=== PATIENT | male | born 1945 | race Caucasian/White ===

== ENCOUNTER 2023-04-07 14:20 | Inpatient (IN) | payer OTHER, MEDICARE ==
--- NOTE | 2023-04-07 15:06 | ED ---
General Adult HPI - General Chief complaint: Extremity Injury, Lower Stated complaint: femur fracture Time Seen by Provider: 04/07/23 14:27 Source: EMS Mode of arrival: EMS Limitations: altered mental status, physical limitation - History of Present Illness Initial comments: Dictation was produced using [employer] book dictation software. please excuse any grammatical, word or spelling errors. Chief Complaint: 77-year-old male who is nonverbal presents with left hip fracture seen on x-ray History of Present Illness:. Aimee is a 77-year-old bedbound male he is a [facility] a [facility]. He is nonverbal according to EMS. He has history of dementia. Apparently he had an x-ray done at [facility] was found be fractured. This [facility] was connected to [facility]. He was diverted from their ER brought to our emergency department. It's unclear patient suffered any fall. EMS gave patient 6 mode grams of morphine. The ROS documented in this emergency department record has been reviewed and confirmed by me. Those systems with pertinent positive or negative responses have been documented in the HPI. All other systems are other negative and/or noncontributory. - Related Data Home Medications Medication Instructions Recorded Confirmed Acetaminophen [Tylenol] 650 mg PO Q6H PRN 04/07/23 04/07/23 LORazepam [Ativan] 1 mg PO BID 04/07/23 04/07/23 Magnesium Hydroxide [Milk of 2,400 mg PO Q48H PRN 04/07/23 04/07/23 Magnesia] Melatonin 3 mg PO HS 04/07/23 04/07/23 Multivitamins, Thera [Multivitamin 1 tab PO DAILY 04/07/23 04/07/23 (formulary)] Na Phos,M-B/Na Phos,Di-Ba [Fleet 133 ml RECTAL Q48H PRN 04/07/23 04/07/23 Adult] Sennosides [Senokot] 8.6 mg PO DAILY 04/07/23 04/07/23 Sertraline [Zoloft] 150 mg PO DAILY 04/07/23 04/07/23 Topiramate [Topamax] 100 mg PO DAILY 04/07/23 04/07/23 bisacodyL [Correctol] 5 mg PO HS PRN 04/07/23 04/07/23 bisacodyL [Dulcolax] 10 mg RECTAL Q72H PRN 04/07/23 04/07/23 carvediloL [Coreg] 6.25 mg PO BID 04/07/23 04/07/23 risperiDONE [RisperDAL] 0.5 mg PO BID 04/07/23 04/07/23 Allergies Allergy/AdvReac Type Severity Reaction Status Date / Time No Known Allergies Allergy Verified 04/07/23 16:41 Review of Systems ROS Statement: Those systems with pertinent positive or pertinent negative responses have been documented in the HPI. ROS Other: All systems not noted in ROS Statement are negative. Past Medical History Past Medical History: Dementia, Hypertension Additional Past Medical History / Comment(s): COVID, Psychotic disorder with delusions, Insomnia, glaucoma, History of Any Multi-Drug Resistant Organisms: Unobtainable Past Surgical History: Unable to Obtain Past Psychological History: Anxiety, Depression, PTSD Smoking Status: Unknown if ever smoked Past Alcohol Use History: Unable to Obtain Past Drug Use History: Unable to Obtain General Exam - General Exam Comments Initial Comments: PHYSICAL EXAM: General Impression: Nonverbal, sleeping, not acute distress, doesn't follow commands, contracted lower extremities HEENT: Normocephalic atraumatic, extra-ocular movements intact, pupils equal and reactive to light bilaterally, mucous membranes moist. Cardiovascular: Heart regular rate and rhythm Chest:, no retractions, no tachypnea Abdomen: abdomen soft, non-tender, non-distended, no organomegaly Musculoskeletal: Pulses present and equal in all extremities, no peripheral edema Motor: no focal deficits noted Neurological: no focal motor or sensory deficits noted Skin: Intact with no visualized rashes Limitations: altered mental status, physical limitation Course Vital Signs 04/07/23 14:21 Temperature 97.6 F Pulse Rate 50 L Respiratory 18 Rate Blood Pressure 105/68 O2 Sat by Pulse 97 Oximetry Medical Decision Making - Medical Decision Making Was pt. sent in by a medical professional or institution (, PA, PAYROLL ACCOUNTANT, urgent care, hospital, or fci...) When possible be specific @ -No Did you speak to anyone other than the patient for history (EMS, parent, family, police, friend...)? What history was obtained from this source @ -No Did you review nursing and triage notes (agree or disagree)? Why? @ -I reviewed and agree with nursing and triage notes Were old charts reviewed (outside hosp., previous admission, EMS record, old EKG, old radiological studies, urgent care reports/EKG's, fci records)? Report findings @ -No old charts were reviewed Differential Diagnosis (chest pain, altered mental status, abdominal pain women, abdominal pain men, vaginal bleeding, musculoskeletal, weakness, fever, dyspnea, syncope, headache, dizziness, GI bleed, back pain, seizure, CVA, palpatations, mental health)? @ -not applicable EKG interpreted by me (3pts min.). @ -As above X-rays interpreted by me (1pt min.). @ -None done CT interpreted by me (1pt min.). @ -Computed tomography scan of the pelvis and hip shows left femoral neck fracture with concern for iliacs hemorrhage and intraperitoneal hemorrhage. CT head and C-spines negative. CT scan of the chest and abdomen pelvis shows no a cute processes. U/S interpreted by me (1pt. min.). @ -None done What testing was considered but not performed or refused? (CT, X-rays, U/S, labs )? Why? @ -None What meds were considered but not given or refused? Why? @ -None Did you discuss the management of the patient with other professionals (professionals i.e. , PA, PAYROLL ACCOUNTANT, lab, RT, psych nurse, social security assessor, drencher, teacher, protection officer, porter sample case)? Give summary @ -Discussed with orthopedic surgery who requests patient be admitted to medicine. Case also discussed with general surgery who will happily consult on the patient Was smoking cessation discussed for >3mins.? @ -No Was critical care preformed (if so, how long)? @ -No Were there social determinants of health that impacted care today? How? (Homelessness, low income, unemployed, alcoholism, drug addiction, transportation, low edu. Level, literacy, decrease access to med. care, fdc, rehab)? @ -No Was there de-escalation of care discussed even if they declined (Discuss DNR or withdrawal of care, Hospice)? DNR status @ -No What co-morbidities impacted this encounter? (DM, HTN, Smoking, COPD, CAD, Cancer, CVA, ARF, Chemo, Hep., AIDS, mental health diagnosis, sleep apnea, morbid obesity)? @ -None Was patient admitted / discharged? Hospital course, mention meds given and route, prescriptions, significant lab abnormalities, going to OR and other pertinent info. @ -77-year-old male presents emergency Department with hip x-ray fracture [facility] at the [facility]. Vital signs are stable. Patient was given analgesics and route to the emergency department. Patient is allegedly a and O 0 at baseline. Computed tomography scan of the pelvis and hip shows no fracture. There is suspicion of intraperitoneal hemorrhage and retroperitoneal iliac is hemorrhage. Case is discussed with the and Gen. surgery. Is unclear when patient had fallen. He is bedridden. He is not a candidate for surgery. Surgical specialties requests patient be admitted to medicine due to complexity of medica l history. Undiagnosed new problem with uncertain prognosis? @ -No Drug Therapy requiring intensive monitoring for toxicity (Heparin, Nitro, Ins ulin, Cardizem)? @ -No Were any procedures done? @ -No Diagnosis/symptom? Acute, or Chronic, or Acute on Chronic? Uncomplicated (without systemic symptoms) or Complicated (systemic symptoms)? @ -Hip fracture Side effects of treatment? @ -No Exacerbation, Progression, or Severe Exacerbation? @ -No Poses a threat to life or bodily function? How? (Chest pain, USA, HI, pneumonia, PE, COPD, DKA, ARF, appy, cholecystitis, CVA, Diverticulitis, Homicidal, Suicidal, threat to staff... and all critical care pts) @ -yes - Lab Data Result diagrams: 04/07/23 15:36 04/07/23 15:36 Lab Results 04/07/23 04/07/23 04/07/23 Range/Units 15:36 15:36 15:36 WBC 9.5 (3.8-10.6) k/uL RBC 4.44 (4.30-5.90) m/uL Hgb 13.8 (13.0-17.5) gm/dL Hct 41.8 (39.0-53.0) % MCV 94.3 (80.0-100.0) fL MCH 31.2 (25.0-35.0) pg MCHC 33.0 (31.0-37.0) g/dL RDW 12.8 (11.5-15.5) % Plt Count 171 (150-450) k/uL MPV 7.9 Neutrophils % 74 % Lymphocytes % 15 % Monocytes % 7 % Eosinophils % 2 % Basophils % 0 % Neutrophils # 7.0 (1.3-7.7) k/uL Lymphocytes # 1.4 (1.0-4.8) k/uL Monocytes # 0.7 (0-1.0) k/uL Eosinophils # 0.2 (0-0.7) k/uL Basophils # 0.0 (0-0.2) k/uL PT 10.2 (10.0-12.5) sec INR 0.9 (<1.2) APTT 22.7 (22.0-30.0) sec Sodium 141 (137-145) mmol/L Potassium 3.9 (3.5-5.1) mmol/L Chloride 108 H (98-107) mmol/L Carbon Dioxide 25 (22-30) mmol/L Anion Gap 8 mmol/L BUN 19 (9-20) mg/dL Creatinine 0.74 (0.66-1.25) mg/dL Est GFR (CKD-EPI)AfAm >90 (>60 ml/min/1.73 sqM) Est GFR (CKD-EPI)NonAf 90 (>60 ml/min/1.73 sqM) Glucose 97 (74-99) mg/dL Calcium 9.2 (8.4-10.2) mg/dL Disposition Clinical Impression: Hip fracture Disposition: ADMITTED IP TO THIS HOSP Condition: Fair Referrals: Edmar Dillard MD [Primary Care Provider] - 1-2 days Decision Time: 18:36
[2023-04-07 15:52] LABS: Basophils % (A) 0 %; Eosinophils # (A) 0.2 k/uL (0-0.7); Eosinophils % (A) 2 %; HCT 41.8 % (39.0-53.0); HGB 13.8 gm/dL (13.0-17.5); Lymphocytes # (A) 1.4 k/uL (1.0-4.8); Lymphocytes % (A) 15 %; MCH 31.2 pg (25.0-35.0); MCV 94.3 fL (80.0-100.0); Mean Platelet Volume 7.9; Monocytes # (A) 0.7 k/uL (0-1.0); Monocytes % (A) 7 %; Neutrophils % (A) 74 %; Platelet Count 171 k/uL (150-450); RBC 4.44 m/uL (4.30-5.90); RDW 12.8 % (11.5-15.5); WBC 9.5 k/uL (3.8-10.6)
[2023-04-07 16:02] LABS: INR 0.9 (<1.2); Partial Thromboplastin Time 22.7 sec (22.0-30.0); Prothrombin Time 10.2 sec (10.0-12.5)
[2023-04-07 16:05] LABS: African American GFR (CKD) >90 (>60 ml/min/1.73 sqM); Anion Gap 8 mmol/L; Blood Urea Nitrogen 19 mg/dL (9-20); Calcium 9.2 mg/dL (8.4-10.2); Carbon Dioxide 25 mmol/L (22-30); Chloride 108 mmol/L (98-107); Glucose 97 mg/dL (74-99); Non-African American GFR(CKD) 90 (>60 ml/min/1.73 sqM); Potassium 3.9 mmol/L (3.5-5.1); Sodium 141 mmol/L (137-145)
--- NOTE | 2023-04-07 16:14 | CT ---
EXAMINATION TYPE: CT pelvis wo con, CT hip LT wo con CT DLP: 317.9 (accession [id number]), 436.9 (accession [id number]) mGycm, Automated exposure control for dose reduction was used. DATE OF EXAM: 04/07/2023 4:01 PM COMPARISON: None CLINICAL INDICATION:Male, 77 years old with history of fracture; left hip fx TECHNIQUE: Standard CT of the pelvis and left hip without IV or oral contrast. Lack of IV or oral c ontrast limits evaluation of solid and hollow organ viscera. Coronal and sagittal reformats were perf ormed. 3-D reformat the left hip were obtained. FINDINGS: BLADDER: Couple of punctate calcifications within the urinary bladder REPRODUCTIVE: Prostate is enlarged in size measuring 5.2 cm in transverse dimension. This indents upo n the ureter bladder base. Prostate calcifications noted. BOWEL: No focal wall thickening. No evidence of bowel obstruction. PERITONEUM: No evidence of pneumoperitoneum. Small amount of intraperitoneal hemorrhage on the left i dentified with left iliac is intramuscular hematoma. VASCULATURE: Atherosclerotic calcification of the vasculature MUSCULOSKELETAL: Acute comminuted minimally displaced transverse left femoral subcapital fracture. Th ere is surrounding edema. No sizable joint effusion. LYMPH NODES: No gross evidence for lymphadenopathy. SOFT TISSUE/ABDOMINAL WALL: There are couple of metallic densities identified within the posterior le ft gluteal soft tissues abutting the iliac bone with largest measuring up to 8 mm. IMPRESSION: 1. Acute left femoral subcapital comminuted minimally displaced fracture. 2. Small intraperitoneal hemorrhage and left iliacus intramuscular hematoma. 3. Prostatomegaly. 4. Couple of urinary bladder calculi. 5. Couple of metallic foreign bodies identified within the left gluteal soft tissues abutting the michael ac bone.
--- NOTE | 2023-04-07 18:16 | CT ---
EXAMINATION TYPE: CT brain cspine wo con CT DLP: 1393.7 mGycm, Automated exposure control for dose reduction was used. DATE OF EXAM: 04/07/2023 5:53 PM COMPARISON: None. CLINICAL INDICATION:Male, 77 years old with history of fall; ams TECHNIQUE: Brain: Multiple axial CT images of the brain were obtained without IV contrast. Cspine: Axial CT images from the skull base to the inferior aspect of T2 we obtained without intraven ous contrast. Coronal and sagittal reformatted images were also reviewed. FINDINGS: Brain: Extra-axial spaces: No abnormal extra-axial fluid collections. Ventricular system: Dilatation in proportion to cerebral atrophy. Cerebral parenchyma: Cerebral atrophy. No acute intraparenchymal hemorrhage or mass effect. The jones -white junction is well differentiated. Scattered hypoattenuating areas are seen within the white mat ter. Cerebellum: Unremarkable. Mass effect: No evidence of midline shift. Intracranial vasculature: Atherosclerotic calcifications of the intracranial vessels. Soft tissues: Normal. Calvarium/osseous structures: No depressed skull fracture. Paranasal sinuses and mastoid air cells: Mild scattered mucosal thickening and or secretions. Visualized orbits: Bilateral aphakia Cervical spine: Fracture: None. Osseous structures: Multilevel degenerative disc disease changes with endplate spurring and disc oste ophyte complex's. Vertebral alignment: Within normal limits. Spinal canal/Neural Foramina: No evidence of significant spinal canal narrowing. No evidence for sign ificant neural foraminal stenosis. Neck soft tissues: Prevertebral soft tissues are within normal limits. IMPRESSION: 1. No acute intracranial process. 2. Nonspecific white matter changes, likely secondary to chronic small vessel ischemic disease. 3. No evidence of cervical spine fracture. 4. Moderate multilevel degenerative disc disease.
--- NOTE | 2023-04-07 18:21 | CT ---
EXAMINATION TYPE: CT ChestAbdPelvis w con CT DLP: 907.5 mGycm, Automated exposure control for dose reduction was used. DATE OF EXAM: 04/07/2023 5:52 PM COMPARISON: CT same day. CLINICAL INDICATION:Male, 77 years old with history of fall; PHH, ams, unable to obtain hx Technique: Multiple axial images of the chest, abdomen, and pelvis were obtained. Two-dimensional cor onal and sagittal reconstructions were obtained. Contrast used:100 mL of Isovue 370 with IV Contrast, Oral contrast used: without Oral Contrast Findings: CHEST: LUNGS/ PLEURA: Posterior dependent atelectasis. No focal consolidation, pneumothorax or pleural effus ion. AIRWAY: Patent and unremarkable. HEART: Size within normal limits. MEDIASTINUM: No gross evidence of adenopathy. Partially calcified lymph node in the subcarinal and ri ght hilar region. VASCULATURE: No aortic aneurysm. MUSCULOSKELETAL: No acute osseous abnormalities. Left shoulder arthroplasty partially visualized. Lane dware is visualized appears intact. SOFT TISSUES/LYMPH NODES: Unremarkable. LOWER NECK: No significant findings. ABDOMEN: ABDOMEN LIVER: Unremarkable GALLBLADDER AND BILE DUCTS: Unremarkable. PANCREAS: Unremarkable. SPLEEN: Unremarkable. ADRENAL GLANDS: Unremarkable. KIDNEYS AND URETERS: No evidence of hydronephrosis or renal calculus. The ureters are unremarkable. PELVIS BLADDER: Couple of punctate calcifications within the urinary bladder REPRODUCTIVE: Prostate is enlarged in size measuring 5.1 cm in transverse dimension. There is coarse calcifications of the prostate gland. ABDOMEN & PELVIS STOMACH AND BOWEL: No evidence of bowel obstruction. PERITONEUM: No evidence of pneumoperitoneum or free fluid. VASCULATURE: No evidence of aortic aneurysm. MUSCULOSKELETAL: Acute comminuted minimally displaced transverse left femoral neck subcapital fractur e. There is surrounding edema. There is grade 1/grade 2 anterolisthesis of L5 on S1 with bilateral pa rs interarticularis defects. LYMPH NODES: No gross evidence for lymphadenopathy. SOFT TISSUE/ABDOMINAL WALL: Unremarkable IMPRESSION: 1. Acute comminuted left femoral neck subcapital fracture. 2. No evidence for acute thoracic or abdominal process. 3. Sequela of chronic granulomatous disease. 4. Prostatomegaly correlate with serum PSA 5. Grade 2 anterolisthesis of L5 on S1.
[2023-04-07] MEDS ORDERED: NALOXONE 0.4 MG/ML 1 ML VIAL IV PRN (18:32)
[2023-04-07 18:41] LABS: ALT 54 U/L (4-49); AST 34 U/L (17-59); African American GFR (CKD) >90 (>60 ml/min/1.73 sqM); Albumin 3.6 g/dL (3.5-5.0); Alkaline Phosphatase 111 U/L (38-126); Anion Gap 8 mmol/L; Blood Urea Nitrogen 18 mg/dL (9-20); Calcium 9.2 mg/dL (8.4-10.2); Carbon Dioxide 25 mmol/L (22-30); Chloride 107 mmol/L (98-107); Glucose 99 mg/dL (74-99); Non-African American GFR(CKD) 89 (>60 ml/min/1.73 sqM); Potassium 4.4 mmol/L (3.5-5.1); Sodium 140 mmol/L (137-145); Total Bilirubin 0.7 mg/dL (0.2-1.3); Total Protein 6.3 g/dL (6.3-8.2)
--- NOTE | 2023-04-07 18:46 | P.CNOR ---
History of Present Illness - [facility] Consult date: 04/07/23 History of present illness: The patient is a 77 y/o male who presented to the ER at [facility] via transfer from [facility] for a left hip fracture. The patient is currently sedated with morphine and unable to communicate at this time. His and her sister are at the bedside upon my exam and they provided a history. He does have a history of dementia and bypass surgery in the past. He is currently residing in the memory care area of an [facility] in [place]. The patient did fall on 04/02/2023 and complained of left hip pain. X-rays were taken in the long term that revealed a left hip fracture. He was sent to the ER at [facility] then transferred here for further evaluation and care by orthopedic surgery. CT of the left hip and pelvis were completed here and revealed a left subcapital femur fracture and a small intraperitoneal hemorrhage and left iliac intramuscular hematoma. The patient's stated he had surgery on the left hip as a child and there was a pin placed in the hip. Orthopedics was consulted for further evaluation and care for the hip fracture. Review of Systems ROS unobtainable: due to mental status Past Medical History Past Medical History: Dementia, Hypertension Additional Past Medical History / Comment(s): COVID, Psychotic disorder with delusions, Insomnia, glaucoma, History of Any Multi-Drug Resistant Organisms: Unobtainable Past Surgical History: Unable to Obtain Past Psychological History: Anxiety, Depression, PTSD Smoking Status: Unknown if ever smoked Past Alcohol Use History: Unable to Obtain Past Drug Use History: Unable to Obtain Medications and Allergies Home Medications Medication Instructions Recorded Confirmed Type Acetaminophen [Tylenol] 650 mg PO Q6H PRN 04/07/23 04/07/23 History LORazepam [Ativan] 1 mg PO BID 04/07/23 04/07/23 History Magnesium Hydroxide [Milk of 2,400 mg PO Q48H PRN 04/07/23 04/07/23 History Magnesia] Melatonin 3 mg PO HS 04/07/23 04/07/23 History Multivitamins, Thera [Multivitamin 1 tab PO DAILY 04/07/23 04/07/23 History (formulary)] Na Phos,M-B/Na Phos,Di-Ba [Fleet 133 ml RECTAL Q48H PRN 04/07/23 04/07/23 History Adult] Sennosides [Senokot] 8.6 mg PO DAILY 04/07/23 04/07/23 History Sertraline [Zoloft] 150 mg PO DAILY 04/07/23 04/07/23 History Topiramate [Topamax] 100 mg PO DAILY 04/07/23 04/07/23 History bisacodyL [Correctol] 5 mg PO HS PRN 04/07/23 04/07/23 History bisacodyL [Dulcolax] 10 mg RECTAL Q72H PRN 04/07/23 04/07/23 History carvediloL [Coreg] 6.25 mg PO BID 04/07/23 04/07/23 History risperiDONE [RisperDAL] 0.5 mg PO BID 04/07/23 04/07/23 History Allergies Allergy/AdvReac Type Severity Reaction Status Date / Time No Known Allergies Allergy Verified 04/07/23 16:41 Physical Examination The patient is an 77 year-old male in no acute distress. He is sedated and unable to respond at this time. The patient's head is normocephalic, atraumatic. No pain upon palpation to the cervical spine, no step-offs noted. Exam of the bilateral upper extremities reveal no obvious deformities or wounds. Exam of the right lower extremity reveals no deformity or wounds. No pain upon range of motion of the right leg. Exam of the left lower extremity reveals some grimacing on ROM of the left hip. There no visible pain to palpation to the lateral hip. There is pain to external and internal rotation of the left hip. Calf is soft and nontender. Circulatory status is intact. Results CT of the left hip and pelvis reveals a left subcapital hip fracture and small intraperitoneal hemorrhage. - Labs Labs: Abnormal Lab Results - Last 24 Hours (Table) 04/07/23 04/07/23 Range/Units 15:36 18:17 Chloride 108 H (98-107) mmol/L ALT 54 H (4-49) U/L H & H 04/07/23 Range/Units 15:36 Hgb 13.8 (13.0-17.5) gm/dL Hct 41.8 (39.0-53.0) % Coagulation 04/07/23 Range/Units 15:36 INR 0.9 (<1.2) Result Diagrams: 04/07/23 15:36 04/07/23 18:17 Assessment and Plan (1) Subcapital fracture of left hip Current Visit: Yes Status: Acute Code(s): S72.012A - UNSP INTRACAPSULAR FRACTURE OF LEFT FEMUR, INIT FOR CLOS FX SNOMED Code(s): 367834809 (2) Fall Current Visit: Yes Status: Acute Code(s): W19.XXXA - UNSPECIFIED FALL, INITIAL ENCOUNTER SNOMED Code(s): 5166258 (3) Dementia Current Visit: Yes Status: Acute Code(s): F03.90 - UNSP DEMENTIA, UNSP SEVERITY, WITHOUT BEH/PSYCH/MOOD/ANX SNOMED Code(s): 13300761 Plan: The clinical and CT findings were discussed with the patient's family at the bedside. The case was discussed at length with Dr. Ozuna. Since the patient is ambulatory at his ECF, we are recommending a left hip hemiarthroplasty. The patient's is requesting the procedure to be done with the anterior approach and the case will be discussed with Dr. Jose Hansen. He will be NPO at midnight. Surgical risks were discussed at length with the patient's . She agrees that we will proceed with surgery tomorrow afternoon. He will remain on bed rest and pain medication as needed. General surgery consult has been placed for the intraperitoneal hemorrhage. Internal medicine has accepted the patient for inpatient admission. We will continue to follow patient closely and will make recommendations as needed.
[2023-04-07] MEDS: SODIUM CHLORIDE 0.9% 1,000 ML IV SCH (20:12)
[2023-04-07] MEDS ORDERED: MAGNESIUM HYDROXIDE 2,400 MG/30 ML CUP PO PRN (20:14)
[2023-04-07] MEDS ORDERED: NA PHOS,M-B/NA PHOS,DI-BA 133 ML ENEMA RECTAL PRN (20:14)
[2023-04-07] MEDS ORDERED: bisacodyL 10 MG SUPP RECTAL PRN (20:14)
[2023-04-07] MEDS ORDERED: bisacodyL 5 MG TABLET.DR PO PRN (20:14)
[2023-04-07] MEDS: carvediloL 6.25 MG TAB PO SCH (22:57)
[2023-04-07] MEDS: MELATONIN 3 MG TABLET PO SCH (22:57)
[2023-04-07] MEDS: risperiDONE 0.5 MG TAB PO SCH (22:57)
[2023-04-08] MEDS ORDERED: MORPHINE SULFATE 2 MG/ML SYRINGE IVP STA (02:29)
[2023-04-08] MEDS ORDERED: ZINC OXIDE PASTE (Z-GUARD) 1 APPLIC APPLIC TOPICAL PRN (03:04)
[2023-04-08] MEDS: carvediloL 6.25 MG TAB PO SCH ×2 (06:26→17:09)
--- NOTE | 2023-04-08 08:00 | XR ---
EXAMINATION TYPE: XR Hip Limited LT DATE OF EXAM: 04/08/2023 COMPARISON: None HISTORY: Fracture, pain TECHNIQUE: Single AP view left hip FINDINGS: Femoral head articulates with the acetabulum. Joint space is narrowed. There is a subtle lucency within the neck of the femur compatible with fracture IMPRESSION: 1. Subtle left femoral neck fracture
[2023-04-08] MEDS: SODIUM CHLORIDE 0.9% 1,000 ML IV SCH ×2 (08:58→17:08)
[2023-04-08] MEDS: SERTRALINE 100 MG TAB PO SCH (08:59)
[2023-04-08] MEDS: TOPIRAMATE 100 MG TAB PO SCH (08:59)
[2023-04-08] MEDS: risperiDONE 0.5 MG TAB PO SCH ×2 (09:00→20:21)
[2023-04-08 09:45] LABS: Basophils % (A) 0 %; Eosinophils # (A) 0.2 k/uL (0-0.7); Eosinophils % (A) 3 %; HCT 40.7 % (39.0-53.0); HGB 13.2 gm/dL (13.0-17.5); Lymphocytes # (A) 1.1 k/uL (1.0-4.8); Lymphocytes % (A) 15 %; MCHC 32.5 g/dL (31.0-37.0); MCV 95.4 fL (80.0-100.0); Mean Platelet Volume 8.4; Monocytes # (A) 0.5 k/uL (0-1.0); Monocytes % (A) 7 %; Neutrophils # (A) 5.4 k/uL (1.3-7.7); Neutrophils % (A) 72 %; Platelet Count 163 k/uL (150-450); RBC 4.27 m/uL (4.30-5.90); RDW 13.3 % (11.5-15.5); WBC 7.5 k/uL (3.8-10.6)
[2023-04-08 11:52] VITALS: BMI 22.6
--- NOTE | 2023-04-08 12:43 | P.HPIM ---
History of Present Illness H&P Date: 04/08/23 History of present illness; patient 77-year-old gentleman with past medical hist ory significant for dementia who is a resident of a [facility] facility and is alert and oriented to time 0 at baseline brought to the ER as a transfer from [facility] for hip fracture. History is limited as patient is not best of historians, EMR records were reviewed, patient normally ambulates. Patient's and daughter did mention that the patient had a fall on 04/02 and was complaining of left hip pain. Hip x-ray done at the [facility] facility found the hip fracture and the reason for initiating the transfer. Initial lab work done in the ER showed WBC 9.5, hemoglobin 13.8, platelet count 171, sodium 141, potassium 3.9, BUN 19, creatinine 0.74, EKG done in the ER showed normal sinus rhythm, no ST segment elevation, no T- wave inversion, heart rate of 66, QRS 100 CT hip and pelvis done showed acute left femoral subcapital comminuted minimally displaced fracture, small intraperitoneal hemorrhage and left iliacus intramuscular hematoma Chest x-ray done in the ER CT head and cervical spine done showed no acute intracranial process, nonspecific white matter changes, no evidence of cervical spine fracture CT chest abdominal and pelvis done showed no evidence of acute thoracic or abdominal process Patient admitted to medicine service REVIEW OF SYSTEMS: Cannot be obtained because of patient's mental status. PHYSICAL EXAMINATION: GENERAL: The patient is alert and oriented x0, not in any acute distress. Chronically ill-looking HEENT: Pupils are round and equally reacting to light. EOMI. No scleral icterus. No conjunctival pallor. Normocephalic, atraumatic. No pharyngeal erythema. No thyromegaly. CARDIOVASCULAR: S1 and S2 present. No murmurs, rubs, or gallops. PULMONARY: Chest is clear to auscultation, no wheezing or crackles. ABDOMEN: Soft, nontender, nondistended, normoactive bowel sounds. No palpable organomegaly. MUSCULOSKELETAL: No joint swelling or deformity. EXTREMITIES: No cyanosis, clubbing, or pedal edema. NEUROLOGICAL: Moving all extremities, history of dementia SKIN: No rashes. Assessment and plan Subcapital fracture of left Hip Fall dementia Monitor vital signs Monitor CBC Monitor CMP Fall Precautions Delirium precautions Continue pain management Continue antiemetics Orthopedic consulted, planning left hip hemiarthroplasty for tomorrow. Patient is medically cleared for surgery with moderate risk of complications pos toperatively Labs and medication were reviewed.. Continue same treatment. Continue with symptomatic treatment. Resume home medication. Monitor labs and vitals. DVT and GI prophylaxis. Further recommendations as per clinical course of the patient Dictation was produced using [employer] dictation software. please excuse any grammatical, word or spelling errors. Past Medical History Past Medical History: Dementia, Hypertension Additional Past Medical History / Comment(s): COVID, Psychotic disorder with delusions, Insomnia, glaucoma, History of Any Multi-Drug Resistant Organisms: Unobtainable Past Surgical History: Joint Replacement Additional Past Surgical History / Comment(s): hip replacement L side, sh Past Anesthesia/Blood Transfusion Reactions: No Reported Reaction Past Psychological History: Anxiety, Depression, PTSD Smoking Status: Never smoker Past Alcohol Use History: Unable to Obtain Past Drug Use History: Unable to Obtain Medications and Allergies Home Medications Medication Instructions Recorded Confirmed Type Acetaminophen [Tylenol] 650 mg PO Q6H PRN 04/07/23 04/07/23 History LORazepam [Ativan] 1 mg PO BID 04/07/23 04/07/23 History Magnesium Hydroxide [Milk of 2,400 mg PO Q48H PRN 04/07/23 04/07/23 History Magnesia] Melatonin 3 mg PO HS 04/07/23 04/07/23 History Multivitamins, Thera [Multivitamin 1 tab PO DAILY 04/07/23 04/07/23 History (formulary)] Na Phos,M-B/Na Phos,Di-Ba [Fleet 133 ml RECTAL Q48H PRN 04/07/23 04/07/23 History Adult] Sennosides [Senokot] 8.6 mg PO DAILY 04/07/23 04/07/23 History Sertraline [Zoloft] 150 mg PO DAILY 04/07/23 04/07/23 History Topiramate [Topamax] 100 mg PO DAILY 04/07/23 04/07/23 History bisacodyL [Correctol] 5 mg PO HS PRN 04/07/23 04/07/23 History bisacodyL [Dulcolax] 10 mg RECTAL Q72H PRN 04/07/23 04/07/23 History carvediloL [Coreg] 6.25 mg PO BID 04/07/23 04/07/23 History risperiDONE [RisperDAL] 0.5 mg PO BID 04/07/23 04/07/23 History Allergies Allergy/AdvReac Type Severity Reaction Status Date / Time No Known Allergies Allergy Verified 04/07/23 16:41 Physical Exam Vitals: Vital Signs Temp Pulse Pulse Resp BP BP Pulse Ox 04/08/23 09:02 97.1 F L 65 16 97/52 95 04/08/23 07:35 97.1 F L 60 17 97/52 95 04/08/23 01:38 96.9 F L 63 16 94/56 98 04/07/23 21:58 97.6 F 65 16 119/69 95 04/07/23 20:38 72 16 111/74 95 04/07/23 14:21 97.6 F 50 L 18 105/68 97 Intake and Output 04/07/23 04/08/23 04/08/23 22:59 06:59 14:59 Other: # Voids 1 # Bowel Movements 1 Weight 63.503 kg Results CBC & Chem 7: 04/08/23 09:19 04/07/23 18:17 Labs: Abnormal Lab Results - Last 24 Hours (Table) 04/07/23 04/07/23 04/08/23 Range/Units 15:36 18:17 09:19 RBC 4.27 L (4.30-5.90) m/uL Chloride 108 H (98-107) mmol/L ALT 54 H (4-49) U/L Thrombosis Risk Factor Assmnt - Choose All That Apply Each Risk Factor Represents 3 Points: Age 75 years or older Each Risk Factor Represents 5 Points: Hip, pelvis, or leg fracture (< 1 month) Thrombosis Risk Factor Assessment Total Risk Factor Score: 8 Thrombosis Risk Factor Assessment Level: High Risk
--- NOTE | 2023-04-08 13:14 | P.GSCN ---
History of Present Illness Consult date: 04/08/23 History of present illness: CHIEF COMPLAINT: Left hip fracture Reason for consult intraperitoneal bleed HISTORY OF PRESENT ILLNESS: This is a 77-year-old male with a history of dementia. Patient is a poor historian. History was obtained from chart. Apparently patient had a fall on 04/02/2023 and complained of left hip pain. Neck x-rays at the group home that he is at revealed a left hip fracture. He was sent to the ER at [place] and then transferred to [facility] for orthopedic evaluation. Computed tomography scan of the left hip and pelvis re ported a left subcapital femur fracture and a small intraperitoneal hemorrhage and left iliac intramuscular hematoma. Patient is scheduled for left hip hemiarthroplasty with orthopedic service today. Surgical service consulted in regards to the intraperitoneal hemorrhage. Patient is not on any blood thinners. Currently not complaining of any abdominal pain. No nausea or vomiting reported. PAST MEDICAL HISTORY: Dementia, hypertension, anxiety, depression, PTSD PAST SURGICAL HISTORY: Orthopedic surgery as a child MEDICATIONS: See below ALLERGIES: See below SOCIAL HISTORY: No illicit drug use. REVIEW OF SYSTEMS: CONSTITUTIONAL: Denies fever or chills. HEENT: Denies blurred vision, vision changes, or eye pain. Denies hemoptysis CARDIOVASCULAR: Denies chest pain or pressure. RESPIRATORY: No shortness of breath. GASTROINTESTINAL: See HPI for pertinent findings HEMATOLOGIC: Denies bleeding disorders. GENITOURINARY: Denies any blood in urine or increased urinary frequency. SKIN: Denies pruitis. Denies rash. PHYSICAL EXAM: VITAL SIGNS: Reviewed GENERAL: Well-developed in no acute distress. ABDOMEN: Soft. Nondistended. Nontender NEUROLOGIC: Awake and alert. Nonverbal. LABORATORY DATA: WBC 7.5 Hgb 13.2 platelets 163 Sodium 140 potassium 4.4 creatinine 0.75 IMAGING: Computed tomography scan chest abdomen pelvis acute comminuted left femoral neck subcapital fracture. No evidence for acute thoracic or abdominal process. Sequelae of chronic cranial hematoma's disease. Prostamegaly. Grade 2 anterolisthesis of L5 on S1. Computed tomography scan of pelvis and hip acute left femoral subcapital comminuted minimally to hip fracture. Small intraperitoneal hemorrhage and left intramuscular hematoma. Couple of metallic foreign bodies identified within the left gluteal soft tissue abutting the iliac bone. Computed tomography scan head and cervical spine no acute intracranial process. No evidence of cervical fracture. ASSESSMENT: 1. Small intraperitoneal hemorrhage noted on pelvic computed tomography scan. Likely secondary to patient's hip fracture 2. Acute left femoral subcapital commuted hip fracture PLAN: -No surgical intervention plan from general surgical service -Continue to monitor -Hemoglobin remaining stable -Orthopedic service following left hip fracture with plans for surgical intervention -Continue supportive care Physician Mica Washer Gluer note has been reviewed by physician. Signing provider agrees with the documented findings, assessment, and plan of care. Past Medical History Past Medical History: Dementia, Hypertension Additional Past Medical History / Comment(s): COVID, Psychotic disorder with delusions, Insomnia, glaucoma, History of Any Multi-Drug Resistant Organisms: Unobtainable Past Surgical History: Joint Replacement Additional Past Surgical History / Comment(s): hip replacement L side, sh Past Anesthesia/Blood Transfusion Reactions: No Reported Reaction Past Psychological History: Anxiety, Depression, PTSD Smoking Status: Never smoker Past Alcohol Use History: Unable to Obtain Past Drug Use History: Unable to Obtain Medications and Allergies Home Medications Medication Instructions Recorded Confirmed Type Acetaminophen [Tylenol] 650 mg PO Q6H PRN 04/07/23 04/07/23 History LORazepam [Ativan] 1 mg PO BID 04/07/23 04/07/23 History Magnesium Hydroxide [Milk of 2,400 mg PO Q48H PRN 04/07/23 04/07/23 History Magnesia] Melatonin 3 mg PO HS 04/07/23 04/07/23 History Multivitamins, Thera [Multivitamin 1 tab PO DAILY 04/07/23 04/07/23 History (formulary)] Na Phos,M-B/Na Phos,Di-Ba [Fleet 133 ml RECTAL Q48H PRN 04/07/23 04/07/23 History Adult] Sennosides [Senokot] 8.6 mg PO DAILY 04/07/23 04/07/23 History Sertraline [Zoloft] 150 mg PO DAILY 04/07/23 04/07/23 History Topiramate [Topamax] 100 mg PO DAILY 04/07/23 04/07/23 History bisacodyL [Correctol] 5 mg PO HS PRN 04/07/23 04/07/23 History bisacodyL [Dulcolax] 10 mg RECTAL Q72H PRN 04/07/23 04/07/23 History carvediloL [Coreg] 6.25 mg PO BID 04/07/23 04/07/23 History risperiDONE [RisperDAL] 0.5 mg PO BID 04/07/23 04/07/23 History Allergies Allergy/AdvReac Type Severity Reaction Status Date / Time No Known Allergies Allergy Verified 04/07/23 16:41 Surgical - Exam Vital Signs Temp Pulse Resp BP Pulse Ox 97.6 F 50 L 18 105/68 97 04/07/23 14:21 04/07/23 14:21 04/07/23 14:21 04/07/23 14:21 04/07/23 14:21 Results - Labs 04/08/23 09:19 04/07/23 18:17 Abnormal Lab Results - Last 24 Hours (Table) 04/07/23 04/07/23 04/08/23 Range/Units 15:36 18:17 09:19 RBC 4.27 L (4.30-5.90) m/uL Chloride 108 H (98-107) mmol/L ALT 54 H (4-49) U/L Diabetes panel 04/07/23 04/07/23 Range/Units 15:36 18:17 Sodium 141 140 (137-145) mmol/L Potassium 3.9 4.4 (3.5-5.1) mmol/L Chloride 108 H 107 (98-107) mmol/L Carbon Dioxide 25 25 (22-30) mmol/L BUN 19 18 (9-20) mg/dL Creatinine 0.74 0.75 (0.66-1.25) mg/dL Glucose 97 99 (74-99) mg/dL Calcium 9.2 9.2 (8.4-10.2) mg/dL AST 34 (17-59) U/L ALT 54 H (4-49) U/L Alkaline Phosphatase 111 (38-126) U/L Total Protein 6.3 (6.3-8.2) g/dL Albumin 3.6 (3.5-5.0) g/dL Calcium panel 04/07/23 04/07/23 Range/Units 15:36 18:17 Calcium 9.2 9.2 (8.4-10.2) mg/dL Albumin 3.6 (3.5-5.0) g/dL Pituitary panel 04/07/23 04/07/23 Range/Units 15:36 18:17 Sodium 141 140 (137-145) mmol/L Potassium 3.9 4.4 (3.5-5.1) mmol/L Chloride 108 H 107 (98-107) mmol/L Carbon Dioxide 25 25 (22-30) mmol/L BUN 19 18 (9-20) mg/dL Creatinine 0.74 0.75 (0.66-1.25) mg/dL Glucose 97 99 (74-99) mg/dL Calcium 9.2 9.2 (8.4-10.2) mg/dL Adrenal panel 04/07/23 04/07/23 Range/Units 15:36 18:17 Sodium 141 140 (137-145) mmol/L Potassium 3.9 4.4 (3.5-5.1) mmol/L Chloride 108 H 107 (98-107) mmol/L Carbon Dioxide 25 25 (22-30) mmol/L BUN 19 18 (9-20) mg/dL Creatinine 0.74 0.75 (0.66-1.25) mg/dL Glucose 97 99 (74-99) mg/dL Calcium 9.2 9.2 (8.4-10.2) mg/dL Total Bilirubin 0.7 (0.2-1.3) mg/dL AST 34 (17-59) U/L ALT 54 H (4-49) U/L Alkaline Phosphatase 111 (38-126) U/L Total Protein 6.3 (6.3-8.2) g/dL Albumin 3.6 (3.5-5.0) g/dL
[2023-04-08] MEDS ORDERED: LACTATED RINGERS 1,000 ML IV ONE ×2 (14:43→16:19)
[2023-04-08] MEDS ORDERED: ONDANSETRON 4 MG/2 ML VIAL ONE (15:04)
[2023-04-08] MEDS ORDERED: ePHEDrine 50 MG/ML 1 ML VIAL ONE (15:07)
[2023-04-08] MEDS ORDERED: MIDAZOLAM 2 MG/2 ML VIAL ONE (15:07)
[2023-04-08] MEDS ORDERED: PROPOFOL 10 MG/ML 20 ML VIAL IV ONE (15:07)
[2023-04-08] MEDS ORDERED: HYDROmorphone (PF) 1 MG/ML ONE (15:07)
[2023-04-08] MEDS ORDERED: LIDOCAINE 1% INJ 10MG/ML (20 ML MDV) ONE (15:07)
[2023-04-08] MEDS ORDERED: SUCCINYLCHOLINE CHLORIDE 200 MG/10 ML VIAL IV ONE (15:07)
[2023-04-08] MEDS ORDERED: ROCURONIUM 10 MG/ML (5 ML VIAL) IV ONE (15:07)
[2023-04-08] MEDS ORDERED: fentaNYL (PF) 50 MCG/ML 2 ML AMP ONE (15:07)
[2023-04-08] MEDS ORDERED: NEOSTIGMINE 1 MG/ML 10 ML VIAL ONE (15:07)
[2023-04-08] MEDS ORDERED: GLYCOPYRROLATE 0.2 MG/ML 2 ML VIAL ONE (15:07)
[2023-04-08] MEDS ORDERED: NALOXONE 0.4 MG/ML 1 ML VIAL IV PRN (15:11)
[2023-04-08] MEDS ORDERED: ONDANSETRON 4 MG/2 ML VIAL IVP PRN (15:11)
[2023-04-08] MEDS ORDERED: HYDROmorphone 0.5 MG/0.5 ML SYRINGE IVP PRN ×3 (15:11)
[2023-04-08] MEDS ORDERED: traMADol 50 MG TAB PO PRN (15:13)
[2023-04-08] MEDS ORDERED: ceFAZolin 1,000 MG in SODIUM CHLORIDE 0.9% 1,000 ML IRRIGATION ONE (15:36)
[2023-04-08] MEDS ORDERED: ROPIVACAINE 5 MG/ML 30 ML VIAL MISCELLANE ONE (15:41)
--- NOTE | 2023-04-08 16:15 | P.OP ---
Date of Procedure: 04/08/23 Preoperative Diagnosis: Subcapital fracture left hip Postoperative Diagnosis: Subcapital fracture left hip Procedure(s) Performed: Left hip hemiarthroplasty with a direct anterior approach Implants: [employer] nephew Polarstem size 3 standard7 with a collar [employer] tandem unipolar, 51 mm [employer] tandem unipolar 12/14 taper sleeve, +0 mm All components were press-fit. Anesthesia: GETA Surgeon: Jose Hansen Hop Strainer #1: Calista Mccormick Estimated Blood Loss (ml): 300 Pathology: none sent Condition: stable Disposition: PACU Indications for Procedure: This is a 77-year-old gentleman with dementia who fell at his memory care residents. He sustained a subcapital fracture of his left hip. After discussing the surgical nonsurgical treatment options with him and his family at length, I recommended a left hip hemiarthroplasty. The family requests this to be done with an anterior approach. Informed consent was obtained. Operative Findings: The operative findings are consistent with a subcapital fracture of the left hip Description of Procedure: The patient was seen and evaluated in the preoperative area and the consent was reviewed. The operative site was marked with a skin marker. The patient verified the procedure and operative site. The patient was then brought to the operating room and given preoperative antibiotics intravenously. A general anesthetic was administered by the anesthesia department. The patient was then placed on the [place] table with the bony prominences well-padded. The hip area was then prepped with a ChloraPrep solution and draped in the usual sterile fashion. A universal timeout was then performed, which confirmed the patient's name, surgical site, ALLERGIES, and procedure being performed on the consent. Next the incision site was located at 1 cm distal and 4 cm lateral to the anterior superior iliac spine. The skin and subcutaneous tissues were sharply incised. Incision was carefully dissected down to the fascia overlying the tensor fascia anjana muscle. This fascia was then incised in line with the muscle fibers. Care was taken to stay laterally in order to avoid injuring the lateral femoral cutaneous nerve. Next, using blunt finger dissection, the tensor fascia anjana muscle was dissected off its investing fascia. The muscle was then carefully retracted laterally with a cobra retractor over the lateral neck of the femur. Next, the circumflex vessels were identified and cauterized using the Aquamantis device. The anterior hip capsule was then exposed. The capsule was then opened and an inverted T fashion. The retractors were then placed intracapsularly. The retractors were maintained intracapsular throughout the procedure. The proximal femur and femoral neck fracture were then visualized. A small amount of traction was placed on the leg. The femoral neck was then osteotomized at the appropriate level above the lesser trochanter. A small wedge of bone was then removed from the remaining femoral head. Next, using a corkscrew the femoral head was removed from the acetabulum. The femoral head was then measured. Attention was then directed to the femur. With the aid of the [place] table, the femur was externally rotated to approximately 130, extended, and adducted under the opposite leg. A side hook was then placed under the proximal femur, and the side hook elevator was used to elevate the proximal femur while releasing the capsule. Retractors were then placed. A capsular release was performed, as well as a release of the conjoined tendon, which afforded excellent visualization of the proximal femur. Next, a box osteotome was used to lateralize the proximal femur. A sprayer hand was then used to locate the femoral canal. Sequential broaching was then performed with appropriate size which afforded excellent fixation in the proximal femur. A trial was then placed with appropriate head and neck, and the hip was gently reduced with the aid of the [place] table. Fluoroscopy was then used to check position of the components, as well as to evaluate the leg lengths and offset. The leg lengths and offset were measured as closely as possible to ensure stability of the hip. The hip was then gently dislocated and the trials were then removed. Final implants were then impacted and the hip was again reduced. Final fluoroscopic x-rays confirmed that the components were in anatomic position. The leg lengths and offset were measured and were found to coincide with the trial measurements. The hip was also taken through range of motion, and found to be stable. The hip was then copiously irrigated with antibiotic solution with pulsatile lavage. The hip was then irrigated with Irrisept solution. The soft tissues were then injected with a ropivacaine solution. The fascia was then closed with 2-0 strata fix suture. The subcutaneous tissue was closed with 3-0 Vicryl. The subcuticular tissue was closed with 3-0 strata fix suture. The skin was then closed with Exofin skin glue. After the glue and dried, and Optifoam silver impregnated dressing was applied. The patient was then transferred to the recovery room in stable condition. The surgical assistant ALEXIS Gracia was required due to the complexity of surgery, and the need for skilled surgical endoscopist for positioning, draping, exposure, retraction, and closure of the wound.
--- NOTE | 2023-04-08 16:28 | XR ---
Intraoperative/procedural fluoroscopic services were provided for left total hip arthroplasty. Total fluoroscopy time is 30.7 seconds with a total of 2 submitted images to PACS. Total DAP 1.2910 Gycm2. Please see the operative note for further details.
--- NOTE | 2023-04-08 17:37 | XR ---
EXAMINATION TYPE: XR Hip Limited LT DATE OF EXAM: 04/08/2023 5:22 PM INDICATION: Patient age:Male; 77 years old; Reason for study: Status post hip surgery, assess surgical alignment; PH. COMPARISON: Left hip radiograph 04/08/2023 TECHNIQUE: The left hip was examined in single frontal projection. FINDINGS: Postsurgical changes from left total hip arthroplasty. Hardware appears intact with appropr iate alignment in the single projection. There is associated soft tissue gas and edema. No acute frac ture or dislocation. Couple of metallic foreign bodies overlie the left iliac bone. IMPRESSION: Postsurgical changes from left total hip arthroplasty. Hardware appears intact with appropriate align ment in the single projection.
[2023-04-08] MEDS: SENNOSIDES-DOCUSATE SODIUM 1 EACH TAB PO SCH (20:21)
[2023-04-08] MEDS: MELATONIN 3 MG TABLET PO SCH (20:21)
[2023-04-08] MEDS: LORazepam 1 MG TAB PO SCH (20:21)
[2023-04-09] MEDS: carvediloL 6.25 MG TAB PO SCH ×2 (07:37→16:45)
[2023-04-09] MEDS: SODIUM CHLORIDE 0.9% 1,000 ML IV SCH ×2 (08:22→21:38)
[2023-04-09 09:21] LABS: Basophils # (A) 0.01 X 10*3/uL (0.00-0.10); Basophils % (A) 0.1 %; Eosinophils # (A) 0.03 X 10*3/uL (0.04-0.35); Eosinophils % (A) 0.4 %; HCT 34.5 % (39.6-50.0); HGB 11.2 d/dL (13.0-17.0); Lymphocytes # (A) 0.75 X 10*3/uL (0.90-5.00); Lymphocytes % (A) 10.4 %; MCH 30.8 pg (27.0-32.0); MCHC 32.5 d/dL (32.0-37.0); MCV 94.8 FL (80.0-97.0); Mean Platelet Volume 10.8 FL (9.5-12.2); Monocytes # (A) 0.75 X 10*3/uL (0.20-1.00); Monocytes % (A) 10.4 %; NRBC Per 100 WBC 0 X 10*3/uL (0.00-0.01); Neutrophils # (A) 5.66 X 10*3/uL (1.80-7.70); Neutrophils % (A) 78.3 %; Platelet Count 156 X 10*3/uL (140-440); RBC 3.64 X 10*6/uL (4.40-5.60); WBC 7.23 X 10*3/uL (4.50-10.00)
--- NOTE | 2023-04-09 10:34 | P.PN ---
Subjective Progress Note Date: 04/09/23 This is a 77-year-old male who is status post left hip hemiarthroplasty with a direct anterior approach. This is postoperative day #1 and patient is seen and evaluated at bedside with Dr. Jose Hansen. Patient has a history of dementia and family is present at bedside today. Per physical therapy, the patient was able to sit on the edge of his bed today. Objective - Vital Signs Vital signs: Vital Signs Temp 98.0 F 04/09/23 00:40 Pulse 95 04/09/23 00:40 Resp 18 04/09/23 00:40 BP 95/59 04/09/23 00:40 Pulse Ox 97 04/09/23 00:40 FiO2 Intake & Output 04/08/23 04/09/23 04/09/23 18:59 06:59 18:59 Intake Total 1951 530 Output Total 540 600 Balance 1411 -600 530 Weight 63.503 kg Intake: IV 1351 Intake, IV Titration 600 530 Amount Sodium Chloride 0.9% 1, 480 000 ml @ 60 mls/hr IV . [id number] DIANE Rx#:[id number] Sodium Chloride 0.9% 1, 600 000 ml @ 75 mls/hr IV . [id number] DIANE Rx#:[id number] ceFAZolin 2 gm In Sodium 50 Chloride 0.9% 50 ml @ 100 mls/hr IVPB Q8HR DIANE Rx# :[id number] Output: Urine 240 600 Estimated Blood Loss 300 Other: Voiding Method Incontinent Indwelling Catheter Indwelling Catheter # Voids 1 - Exam Vital signs are stable. Patient is in no acute distress and is confused. Calf is soft and nontender to palpation. Dressing is clean, dry, and intact. Patient has full foot and ankle motion without pain or difficulty. Sensation intact. Neurovascular status and circulatory status are intact. - Labs CBC & Chem 7: 04/09/23 04:31 04/07/23 18:17 Labs: Abnormal Lab Results - Last 24 Hours (Table) 04/09/23 Range/Units 04:31 RBC 3.64 L (4.40-5.60) X 10*6/uL Hgb 11.2 L (13.0-17.0) d/dL Hct 34.5 L (39.6-50.0) % Lymphocytes # 0.75 L (0.90-5.00) X 10*3/uL Eosinophils # 0.03 L (0.04-0.35) X 10*3/uL Assessment and Plan (1) S/P hip hemiarthroplasty Current Visit: Yes Status: Acute Code(s): Z96.649 - PRESENCE OF UNSPECIFIED ARTIFICIAL HIP JOINT SNOMED Code(s): 562996416 (2) Dementia Current Visit: Yes Status: Acute Code(s): F03.90 - UNSP DEMENTIA, UNSP SEVERITY, WITHOUT BEH/PSYCH/MOOD/ANX SNOMED Code(s): 36583228 (3) Fall Current Visit: Yes Status: Acute Code(s): W19.XXXA - UNSPECIFIED FALL, INITIAL ENCOUNTER SNOMED Code(s): 6680067 (4) Hip fracture Current Visit: Yes Status: Acute Code(s): S72.009A - FRACTURE OF UNSP PART OF NECK OF UNSP FEMUR, INIT SNOMED Code(s): 875852885 (5) Subcapital fracture of left hip Current Visit: Yes Status: Acute Code(s): S72.012A - UNSP INTRACAPSULAR FRACTURE OF LEFT FEMUR, INIT FOR CLOS FX SNOMED Code(s): 337574528 Plan: Continue routine postop care and pain control. Continue anticoagulation with Xarelto. Weightbearing as tolerated with a walker. Leave dressing in place for 7 days. Appreciate input from internal medicine. Anticipate discharge to ECF in the next 24-48 hours.
[2023-04-09] MEDS: risperiDONE 0.5 MG TAB PO SCH ×2 (10:45→21:30)
[2023-04-09] MEDS: RIVAROXABAN 10 MG TAB PO SCH (10:45)
[2023-04-09] MEDS: TOPIRAMATE 100 MG TAB PO SCH (10:45)
[2023-04-09] MEDS: LORazepam 1 MG TAB PO SCH ×2 (10:46→18:45)
[2023-04-09] MEDS: SERTRALINE 100 MG TAB PO SCH (10:46)
[2023-04-09] MEDS: traMADol 50 MG TAB PO PRN ×2 (11:12→11:14)
--- NOTE | 2023-04-09 13:17 | P.PN ---
Subjective Progress Note Date: 04/09/23 patient 77-year-old gentleman with past medical history significant for dementia who is a resident of a residential facility and is alert and oriented to time 0 at baseline brought to the ER as a transfer from [facility] for hip fracture. History is limited as patient is not best of historians, EMR records were reviewed, patient normally ambulates. Patient's and daughter did mention that the patient had a fall on 04/02 and was complaining of left hip pain. Hip x-ray done at the residential facility found the hip fracture and the reason for initiating the transfer. Initial lab work done in the ER showed WBC 9.5, hemoglobin 13.8, platelet count 171, sodium 141, potassium 3.9, BUN 19, creatinine 0.74, EKG done in the ER showed normal sinus rhythm, no ST segment elevation, no T- wave inversion, heart rate of 66, QRS 100 CT hip and pelvis done showed acute left femoral subcapital comminuted minimally displaced fracture, small intraperitoneal hemorrhage and left iliacus intramuscular hematoma Chest x-ray done in the ER CT head and cervical spine done showed no acute intracranial process, nonspecific white matter changes, no evidence of cervical spine fracture CT chest abdominal and pelvis done showed no evidence of acute thoracic or abdominal process Patient admitted to medicine service 04/09. Patient seen and examined. Does not look in any acute distress. at the bedside. Denies any left hip pain REVIEW OF SYSTEMS: CONSTITUTIONAL: No fever, no malaise,. CARDIOVASCULAR: No chest pain, no palpitations, no syncope. PULMONARY: No shortness of breath, no cough, GASTROINTESTINAL: No diarrhea, no nausea, no vomiting, no abdominal pain. NEUROLOGICAL: No headaches, no weakness, PHYSICAL EXAMINATION: GENERAL: The patient is alert and oriented x0, not in any acute distress. Chronically ill-looking HEENT: Pupils are round and equally reacting to light. EOMI. No scleral icterus. No conjunctival pallor. Normocephalic, atraumatic. No pharyngeal erythema. No thyromegaly. CARDIOVASCULAR: S1 and S2 present. No murmurs, rubs, or gallops. PULMONARY: Chest is clear to auscultation, no wheezing or crackles. ABDOMEN: Soft, nontender, nondistended, normoactive bowel sounds. No palpable organomegaly. MUSCULOSKELETAL: Left hip incision seen EXTREMITIES: No cyanosis, clubbing, or pedal edema. NEUROLOGICAL: Moving all extremities, history of dementia SKIN: No rashes. Assessment and plan Subcapital fracture of left Hip Fall dementia Acute blood loss anemia Monitor vital signs Monitor CBC Monitor CMP Delirium precautions fall precautions Encourage use of incentive spirometer Status post left hip hemiarthroplasty continue postoperative antibiotic per protocol, postoperative pain management per orthopedics Continue DVT prophylaxis per orthopedics, currently on Xarelto per orthopedic orthopedic follow Labs and medication were reviewed.. Continue same treatment. Continue with symptomatic treatment. Resume home medication. Monitor labs and vitals. DVT and GI prophylaxis. Further recommendations as per clinical course of the patient Dictation was produced using [employer] dictation software. please excuse any grammatical, word or spelling errors. Objective - Vital Signs Vital signs: Vital Signs Temp 98.0 F 04/09/23 00:40 Pulse 95 04/09/23 00:40 Resp 18 04/09/23 00:40 BP 95/59 04/09/23 00:40 Pulse Ox 97 04/09/23 00:40 FiO2 Intake & Output 04/08/23 04/09/23 04/09/23 18:59 06:59 18:59 Intake Total 1951 Output Total 540 600 Balance 1411 -600 Weight 63.503 kg Intake: IV 1351 Intake, IV Titration 600 Amount Sodium Chloride 0.9% 1, 600 000 ml @ 75 mls/hr IV . [id number] [facility] Rx#:[id number] Output: Urine 240 600 Estimated Blood Loss 300 Other: Voiding Method Incontinent Indwelling Catheter # Voids 1 - Labs CBC & Chem 7: 04/09/23 04:31 04/07/23 18:17 Labs: Abnormal Lab Results - Last 24 Hours (Table) 04/09/23 Range/Units 04:31 RBC 3.64 L (4.40-5.60) X 10*6/uL Hgb 11.2 L (13.0-17.0) d/dL Hct 34.5 L (39.6-50.0) % Lymphocytes # 0.75 L (0.90-5.00) X 10*3/uL Eosinophils # 0.03 L (0.04-0.35) X 10*3/uL
--- NOTE | 2023-04-09 14:03 | P.PN ---
Subjective Progress Note Date: 04/09/23 CHIEF COMPLAINT: Small intraperitoneal hemorrhage HISTORY OF PRESENT ILLNESS: Patient lying in bed comfortably. He is status post left hip hemiarthroplasty with orthopedic service. Afebrile. WBC is 7.23 HGB did go down from 13.2-11.2. Orthopedic service has started patient on Xarelto PHYSICAL EXAM: VITAL SIGNS: Reviewed. GENERAL: Well-developed in no acute distress. ABDOMEN: Soft. Nondistended. Nontender. NEUROLOGIC: Alert and oriented. Cranial nerves II through XII grossly intact. extremities: Left thigh dressing clean dry and intact ASSESSMENT: 1. Small intraperitoneal hemorrhage noted on pelvic computed tomography scan. Likely secondary to patient's hip fracture 2. Acute left femoral subcapital commuted hip fracture PLAN: -No surgical intervention planned from general surgical service standpoint -Continue to monitor HGB -Continue regular diet Physician Washer Assembler note has been reviewed by physician. Signing provider agrees with the documented findings, assessment, and plan of care. Objective - Vital Signs Vital signs: Vital Signs Temp 98.0 F 04/09/23 00:40 Pulse 95 04/09/23 00:40 Resp 18 04/09/23 00:40 BP 95/59 04/09/23 00:40 Pulse Ox 97 04/09/23 00:40 FiO2 Intake & Output 04/08/23 04/09/23 04/09/23 18:59 06:59 18:59 Intake Total 1951 530 Output Total 540 600 Balance 1411 -600 530 Weight 63.503 kg Intake: IV 1351 Intake, IV Titration 600 530 Amount Sodium Chloride 0.9% 1, 480 000 ml @ 60 mls/hr IV . [id number] [facility] Rx#:[id number] Sodium Chloride 0.9% 1, 600 000 ml @ 75 mls/hr IV . [id number] [facility] Rx#:[id number] ceFAZolin 2 gm In Sodium 50 Chloride 0.9% 50 ml @ 100 mls/hr IVPB Q8HR [facility] Rx# :[id number] Output: Urine 240 600 Estimated Blood Loss 300 Other: Voiding Method Incontinent Indwelling Catheter Indwelling Catheter # Voids 1 - Labs CBC & Chem 7: 04/09/23 04:31 04/07/23 18:17 Labs: Abnormal Lab Results - Last 24 Hours (Table) 04/09/23 Range/Units 04:31 RBC 3.64 L (4.40-5.60) X 10*6/uL Hgb 11.2 L (13.0-17.0) d/dL Hct 34.5 L (39.6-50.0) % Lymphocytes # 0.75 L (0.90-5.00) X 10*3/uL Eosinophils # 0.03 L (0.04-0.35) X 10*3/uL
[2023-04-09] MEDS: SENNOSIDES-DOCUSATE SODIUM 1 EACH TAB PO SCH (21:30)
[2023-04-09] MEDS: MELATONIN 3 MG TABLET PO SCH (21:30)
[2023-04-10] MEDS: carvediloL 6.25 MG TAB PO SCH ×2 (06:38→16:58)
[2023-04-10] MEDS: SERTRALINE 100 MG TAB PO SCH (10:25)
[2023-04-10] MEDS: risperiDONE 0.5 MG TAB PO SCH ×2 (10:25→23:07)
[2023-04-10] MEDS: TOPIRAMATE 100 MG TAB PO SCH (10:25)
[2023-04-10] MEDS: RIVAROXABAN 10 MG TAB PO SCH (10:25)
[2023-04-10] MEDS: ACETAMINOPHEN TAB 325 MG TAB PO PRN ×2 (10:45→16:58)
[2023-04-10] MEDS: LORazepam 1 MG TAB PO SCH ×2 (12:56→23:07)
--- NOTE | 2023-04-10 13:17 | P.PN ---
Subjective Progress Note Date: 04/10/23 patient 77-year-old gentleman with past medical history significant for dementia who is a resident of a [facility] facility and is alert and oriented to time 0 at baseline brought to the ER as a transfer from [facility] for hip fracture. History is limited as patient is not best of historians, EMR records were reviewed, patient normally ambulates. Patient's and daughter did mention that the patient had a fall on 04/02 and was complaining of left hip pain. Hip x-ray done at the [facility] facility found the hip fracture and the reason for initiating the transfer. Initial lab work done in the ER showed WBC 9.5, hemoglobin 13.8, platelet count 171, sodium 141, potassium 3.9, BUN 19, creatinine 0.74, EKG done in the ER showed normal sinus rhythm, no ST segment elevation, no T- wave inversion, heart rate of 66, QRS 100 CT hip and pelvis done showed acute left femoral subcapital comminuted minimally displaced fracture, small intraperitoneal hemorrhage and left iliacus intramuscular hematoma Chest x-ray done in the ER CT head and cervical spine done showed no acute intracranial process, nonspecific white matter changes, no evidence of cervical spine fracture CT chest abdominal and pelvis done showed no evidence of acute thoracic or abdominal process Patient admitted to medicine service 04/09. Patient seen and examined. Does not look in any acute distress. at the bedside. Denies any left hip pain 04/10. Patient seen and examined. Patient is laying in the bed with eyes closed, at the bedside. If left hip touched cries in pain. REVIEW OF SYSTEMS: Unable to obtain a review of systems because the patient dementia PHYSICAL EXAMINATION: GENERAL: The patient is lethargic, not in any acute distress. Chronically ill- looking HEENT: Pupils are round and equally reacting to light. EOMI. No scleral icterus. No conjunctival pallor. Normocephalic, atraumatic. No pharyngeal erythema. No thyromegaly. CARDIOVASCULAR: S1 and S2 present. No murmurs, rubs, or gallops. PULMONARY: Chest is clear to auscultation, no wheezing or crackles. ABDOMEN: Soft, nontender, nondistended, normoactive bowel sounds. No palpable organomegaly. MUSCULOSKELETAL: Left hip incision seen EXTREMITIES: No cyanosis, clubbing, or pedal edema. NEUROLOGICAL: Moving all extremities, history of dementia SKIN: No rashes. Assessment and plan Subcapital fracture of left Hip Fall dementia Acute blood loss anemia Monitor vital signs Monitor CBC Monitor CMP Delirium precautions fall precautions Encourage use of incentive spirometer Status post left hip hemiarthroplasty continue postoperative antibiotic per protocol, postoperative pain management per orthopedics Continue DVT prophylaxis per orthopedics, currently on Xarelto per orthopedic orthopedic follow Labs and medication were reviewed.. Continue same treatment. Continue with symptomatic treatment. Resume home medication. Monitor labs and vitals. DVT and GI prophylaxis. Further recommendations as per clinical course of the patient Dictation was produced using [employer] dictation software. please excuse any grammatical, word or spelling errors. Objective - Vital Signs Vital signs: Vital Signs Temp 98.2 F 04/10/23 07:28 Pulse 64 04/10/23 11:24 Resp 18 04/10/23 11:24 BP 104/66 04/10/23 07:28 Pulse Ox 94 L 04/10/23 08:34 FiO2 21 04/10/23 08:34 Intake & Output 04/09/23 04/10/23 04/10/23 18:59 06:59 18:59 Intake Total 530 Output Total 900 Balance 530 -900 Intake: Intake, IV Titration 530 Amount Sodium Chloride 0.9% 1, 480 000 ml @ 60 mls/hr IV . [id number] [facility] Rx#:[id number] ceFAZolin 2 gm In Sodium 50 Chloride 0.9% 50 ml @ 100 mls/hr IVPB Q8HR [facility] Rx# :[id number] Output: Urine 900 Other: Voiding Method Indwelling Catheter Indwelling Catheter Indwelling Catheter - Labs CBC & Chem 7: 04/09/23 04:31 04/07/23 18:17
--- NOTE | 2023-04-10 13:28 | P.PN ---
Subjective Progress Note Date: 04/10/23 This is a 77-year-old male who is status post left hip hemiarthroplasty with a direct anterior approach. This is postoperative day #2 and patient is seen and evaluated at bedside today. Patient has a history of dementia and family is present at bedside today. Per family, no new complaints today. Objective - Vital Signs Vital signs: Vital Signs Temp 98.2 F 04/10/23 07:28 Pulse 64 04/10/23 11:24 Resp 18 04/10/23 11:24 BP 104/66 04/10/23 07:28 Pulse Ox 94 L 04/10/23 08:34 FiO2 21 04/10/23 08:34 Intake & Output 04/09/23 04/10/23 04/10/23 18:59 06:59 18:59 Intake Total 530 Output Total 900 440 Balance 530 -900 -440 Intake: Intake, IV Titration 530 Amount Sodium Chloride 0.9% 1, 480 000 ml @ 60 mls/hr IV . [id number] [facility] Rx#:[id number] ceFAZolin 2 gm In Sodium 50 Chloride 0.9% 50 ml @ 100 mls/hr IVPB Q8HR [facility] Rx# :[id number] Output: Urine 900 440 Other: Voiding Method Indwelling Catheter Indwelling Catheter Indwelling Catheter - Exam Vital signs are stable. Patient is in no acute distress and is confused. Calf is soft and nontender to palpation. Dressing is clean, dry, and intact. Patient has full foot and ankle motion without pain or difficulty. Sensation intact. Neurovascular status and circulatory status are intact. - Labs CBC & Chem 7: 04/09/23 04:31 04/07/23 18:17 Assessment and Plan (1) S/P hip hemiarthroplasty Current Visit: Yes Status: Acute Code(s): Z96.649 - PRESENCE OF UNSPECIFIED ARTIFICIAL HIP JOINT SNOMED Code(s): 773811823 (2) Dementia Current Visit: Yes Status: Acute Code(s): F03.90 - UNSP DEMENTIA, UNSP SEVERITY, WITHOUT BEH/PSYCH/MOOD/ANX SNOMED Code(s): 31968765 (3) Fall Current Visit: Yes Status: Acute Code(s): W19.XXXA - UNSPECIFIED FALL, INITIAL ENCOUNTER SNOMED Code(s): 9989767 (4) Hip fracture Current Visit: Yes Status: Acute Code(s): S72.009A - FRACTURE OF UNSP PART OF NECK OF UNSP FEMUR, INIT SNOMED Code(s): 672200627 (5) Subcapital fracture of left hip Current Visit: Yes Status: Acute Code(s): S72.012A - UNSP INTRACAPSULAR FRACTURE OF LEFT FEMUR, INIT FOR CLOS FX SNOMED Code(s): 689312869 Plan: Continue routine postop care and pain control. Continue anticoagulation with Xarelto. Weightbearing as tolerated with a walker. Leave dressing in place for 7 days. Appreciate input from internal medicine. Anticipate discharge to ECF in the next 24-48 hours.
--- NOTE | 2023-04-10 13:33 | P.PN ---
Subjective Progress Note Date: 04/10/23 CHIEF COMPLAINT: Small intraperitoneal hemorrhage HISTORY OF PRESENT ILLNESS: Patient lying in bed comfortably. He is status post left hip hemiarthroplasty with orthopedic service. Afebrile. Labs pending. Orthopedic service has started patient on Xarelto PHYSICAL EXAM: VITAL SIGNS: Reviewed. GENERAL: Well-developed in no acute distress. ABDOMEN: Soft. Nondistended. Nontender. extremities: Left thigh dressing clean dry and intact ASSESSMENT: 1. Small intraperitoneal hemorrhage noted on pelvic computed tomography scan. Likely secondary to patient's hip fracture 2. Acute left femoral subcapital commuted hip fracture PLAN: -No surgical intervention planned from general surgical service standpoint -Continue to monitor HGB -Continue regular diet Physician Mining Plant Operator note has been reviewed by physician. Signing provider agrees with the documented findings, assessment, and plan of care. Objective - Vital Signs Vital signs: Vital Signs Temp 98.2 F 04/10/23 07:28 Pulse 104 H 04/10/23 07:28 Resp 17 04/10/23 07:28 BP 104/66 04/10/23 07:28 Pulse Ox 94 L 04/10/23 08:34 FiO2 21 04/10/23 08:34 Intake & Output 04/09/23 04/10/23 04/10/23 18:59 06:59 18:59 Intake Total 530 Output Total 900 Balance 530 -900 Intake: Intake, IV Titration 530 Amount Sodium Chloride 0.9% 1, 480 000 ml @ 60 mls/hr IV . [id number] [facility] Rx#:[id number] ceFAZolin 2 gm In Sodium 50 Chloride 0.9% 50 ml @ 100 mls/hr IVPB Q8HR [facility] Rx# :[id number] Output: Urine 900 Other: Voiding Method Indwelling Catheter Indwelling Catheter - Labs CBC & Chem 7: 04/09/23 04:31 04/07/23 18:17
[2023-04-10] MEDS: SODIUM CHLORIDE 0.9% 1,000 ML IV SCH (17:14)
[2023-04-10] MEDS: SENNOSIDES-DOCUSATE SODIUM 1 EACH TAB PO SCH (23:06)
[2023-04-10] MEDS: MELATONIN 3 MG TABLET PO SCH (23:06)
[2023-04-11] MEDS: SODIUM CHLORIDE 0.9% 1,000 ML IV SCH (05:19)
[2023-04-11] MEDS: carvediloL 6.25 MG TAB PO SCH (06:32)
[2023-04-11 08:19] VITALS: RESP 14
--- NOTE | 2023-04-11 08:46 | P.PN ---
Subjective Progress Note Date: 04/11/23 Principal diagnosis: Left hip fracture. Status post hemiarthroplasty left hip. This is a 77-year-old male who is status post left hip hemiarthroplasty with a direct anterior approach. This is postoperative day #3 and patient is seen and evaluated at bedside today. Patient has a history of dementia and family is present at bedside today. Per family, no new complaints today. He is awaiting transfer to his assisted care facility. Objective - Vital Signs Vital signs: Vital Signs Temp 97.9 F 04/11/23 07:19 Pulse 79 04/11/23 07:19 Resp 14 04/11/23 07:19 BP 103/64 04/11/23 07:19 Pulse Ox 95 04/11/23 07:19 FiO2 21 04/10/23 08:34 Intake & Output 04/10/23 04/11/23 04/11/23 18:59 06:59 18:59 Intake Total 240 Output Total 840 1825 Balance -600 -1825 Weight 63.503 kg Intake: Oral 240 Output: Urine 840 1825 Other: Voiding Method Indwelling Catheter Indwelling Catheter # Voids 2 - Exam This is a 77-year-old male in no acute distress. He is pleasantly confused. His is at bedside feeding him breakfast. Exam of the left hip reveals that his Optifoam dressing is clean, dry and intact. Pedal pulse is +1/4. Neurovascular status to the lower extremity is grossly intact. - Labs CBC & Chem 7: 04/09/23 04:31 04/07/23 18:17 Assessment and Plan (1) Dementia Current Visit: Yes Status: Acute Code(s): F03.90 - UNSP DEMENTIA, UNSP SEVERITY, WITHOUT BEH/PSYCH/MOOD/ANX SNOMED Code(s): 26576456 (2) Fall Current Visit: Yes Status: Acute Code(s): W19.XXXA - UNSPECIFIED FALL, INITIAL ENCOUNTER SNOMED Code(s): 9273822 (3) S/P hip hemiarthroplasty Current Visit: Yes Status: Acute Code(s): Z96.649 - PRESENCE OF UNSPECIFIED ARTIFICIAL HIP JOINT SNOMED Code(s): 922788782 Plan: The clinical findings are discussed with the patient and his as well as nursing staff. We are awaiting transfer to his assisted care facility. May be discharged whenever cleared medically and placement is arranged.
[2023-04-11] MEDS: ACETAMINOPHEN TAB 325 MG TAB PO PRN (09:33)
[2023-04-11] MEDS: risperiDONE 0.5 MG TAB PO SCH (09:33)
[2023-04-11] MEDS: TOPIRAMATE 100 MG TAB PO SCH (09:34)
[2023-04-11] MEDS: SERTRALINE 100 MG TAB PO SCH (09:34)
[2023-04-11] MEDS: RIVAROXABAN 10 MG TAB PO SCH (09:35)
[2023-04-11 10:08] LABS: Basophils % (A) 0 %; Eosinophils # (A) 0.2 k/uL (0-0.7); Eosinophils % (A) 3 %; HCT 29.5 % (39.0-53.0); HGB 9.8 gm/dL (13.0-17.5); Lymphocytes # (A) 0.8 k/uL (1.0-4.8); Lymphocytes % (A) 10 %; MCH 32.1 pg (25.0-35.0); MCHC 33.4 g/dL (31.0-37.0); MCV 96.1 fL (80.0-100.0); Mean Platelet Volume 8.6; Monocytes # (A) 0.3 k/uL (0-1.0); Monocytes % (A) 4 %; Neutrophils # (A) 5.8 k/uL (1.3-7.7); Neutrophils % (A) 81 %; Platelet Count 138 k/uL (150-450); RBC 3.07 m/uL (4.30-5.90); RDW 12.8 % (11.5-15.5); WBC 7.2 k/uL (3.8-10.6)
--- NOTE | 2023-04-11 10:42 | P.PN ---
Subjective Progress Note Date: 04/11/23 CHIEF COMPLAINT: Small intraperitoneal hemorrhage HISTORY OF PRESENT ILLNESS: Patient lying in bed comfortably. He is status post left hip hemiarthroplasty with orthopedic service. Afebrile. hgb 9.8. Patient to be discharged today. PHYSICAL EXAM: VITAL SIGNS: Reviewed. GENERAL: Well-developed in no acute distress. ABDOMEN: Soft. Nondistended. Nontender. extremities: Left thigh dressing clean dry and intact ASSESSMENT: 1. Small intraperitoneal hemorrhage noted on pelvic computed tomography scan. Likely secondary to patient's hip fracture 2. Acute left femoral subcapital commuted hip fracture PLAN: -No surgical intervention planned from general surgical service standpoint -Continue regular diet -Surgical service will sign off. Please call with any questions or concerns. Physician Portrait Artist note has been reviewed by physician. Signing provider agrees with the documented findings, assessment, and plan of care. Objective - Vital Signs Vital signs: Vital Signs Temp 97.9 F 04/11/23 07:19 Pulse 79 04/11/23 07:19 Resp 14 04/11/23 07:19 BP 103/64 04/11/23 07:19 Pulse Ox 95 04/11/23 07:19 FiO2 21 04/10/23 08:34 Intake & Output 04/10/23 04/11/23 04/11/23 18:59 06:59 18:59 Intake Total 240 Output Total 840 1825 Balance -600 -1825 Weight 63.503 kg Intake: Oral 240 Output: Urine 840 1825 Other: Voiding Method Indwelling Catheter Indwelling Catheter # Voids 2 - Labs CBC & Chem 7: 04/11/23 07:07 04/07/23 18:17
[2023-04-11 11:16] LABS: Glucose,Whole Blood 190 mg/dL (70-110)
[2023-04-11 13:23] VITALS: BP 103/58; PULSE 80; TEMP 99.5
[2023-04-11] MEDS: LORazepam 1 MG TAB PO SCH (13:28)
--- NOTE | 2023-04-11 13:28 | P.DS ---
Providers Date of admission: 04/07/23 18:32 Expected date of discharge: 04/11/23 Attending physician: Blanca Rivera Consults: 04/07/23 17:37 Consult Physician Routine Consulting Provider: Randolph Joy Consult Reason/Comments: intraperitoneal bleed Do you want consulting provider notified?: Already Contacted 04/07/23 18:30 Consult Physician Routine Consulting Provider: Chapis Ozuna Consult Reason/Comments: hip fracture Do you want consulting provider notified?: Already Contacted Primary care physician: Edmar Dillard Hospital Course: Discharge diagnoses; Subcapital fracture of left Hip Fall dementia Acute blood loss anemia Hospital course; patient 77-year-old gentleman with past medical history significant for dementia who is a resident of a custodial facility and is alert and oriented to time 0 at baseline brought to the ER as a transfer from [facility] for hip fracture. History is limited as patient is not best of historians, EMR records were reviewed, patient normally ambulates. Patient's and daughter did mention that the patient had a fall on 04/02 and was complaining of left hip pain. Hip x-ray done at the custodial facility found the hip fracture and the reason for initiating the transfer. Initial lab work done in the ER showed WBC 9.5, hemoglobin 13.8, platelet count 171, sodium 141, potassium 3.9, BUN 19, creatinine 0.74, EKG done in the ER showed normal sinus rhythm, no ST segment elevation, no T- wave inversion, heart rate of 66, QRS 100 CT hip and pelvis done showed acute left femoral subcapital comminuted minimally displaced fracture, small intraperitoneal hemorrhage and left iliacus intramuscular hematoma Chest x-ray done in the ER CT head and cervical spine done showed no acute intracranial process, nonspecific white matter changes, no evidence of cervical spine fracture CT chest abdominal and pelvis done showed no evidence of acute thoracic or abdominal process Patient admitted to medicine service 04/09. Patient seen and examined. Does not look in any acute distress. at the bedside. Denies any left hip pain 04/10. Patient seen and examined. Patient is laying in the bed with eyes closed, at the bedside. If left hip touched cries in pain. 04/11. Patient seen and examined. Orthopedic recommended Discharged on Xarelto for DVT prophylaxis. discharge in stable condition PHYSICAL EXAMINATION: GENERAL: The patient has baseline dementia, not in any acute distress. Chronically ill-looking HEENT: Pupils are round and equally reacting to light. EOMI. No scleral icterus. No conjunctival pallor. Normocephalic, atraumatic. No pharyngeal erythema. No thyromegaly. CARDIOVASCULAR: S1 and S2 present. No murmurs, rubs, or gallops. PULMONARY: Chest is clear to auscultation, no wheezing or crackles. ABDOMEN: Soft, nontender, nondistended, normoactive bowel sounds. No palpable organomegaly. MUSCULOSKELETAL: Left hip incision seen EXTREMITIES: No cyanosis, clubbing, or pedal edema. NEUROLOGICAL: Moving all extremities, history of dementia SKIN: No rashes. Dictation was produced using [employer] dictation software. please excuse any grammatical, word or spelling errors. Patient Condition at Discharge: Fair Plan - Discharge Summary New Discharge Prescriptions: New Rivaroxaban [Xarelto] 10 mg PO DAILY #30 tab Sennosides [Senokot] 2 tab PO DAILY PRN #60 tablet PRN Reason: Constipation traMADol HCl [Ultram] 1 - 2 tab PO Q6H PRN #32 tab PRN Reason: Pain Continue Multivitamins, Thera [Multivitamin (formulary)] 1 tab PO DAILY Acetaminophen [Tylenol] 650 mg PO Q6H PRN PRN Reason: Fever And/ Or Pain Magnesium Hydroxide [Milk of Magnesia] 2,400 mg PO Q48H PRN PRN Reason: Constipation Na Phos,M-B/Na Phos,Di-Ba [Fleet Adult] 133 ml RECTAL Q48H PRN PRN Reason: Constipation Melatonin 3 mg PO HS carvediloL [Coreg] 6.25 mg PO BID bisacodyL [Dulcolax] 10 mg RECTAL Q72H PRN PRN Reason: Constipation LORazepam [Ativan] 1 mg PO BID 3 Days #6 tab Topiramate [Topamax] 100 mg PO DAILY Sertraline [Zoloft] 150 mg PO DAILY risperiDONE [RisperDAL] 0.5 mg PO BID bisacodyL [Correctol] 5 mg PO HS PRN PRN Reason: Constipation Discontinued Sennosides [Senokot] 8.6 mg PO DAILY Discharge Medication List Acetaminophen [Tylenol] 650 mg PO Q6H PRN 04/07/23 [History] Magnesium Hydroxide [Milk of Magnesia] 2,400 mg PO Q48H PRN 04/07/23 [History] Melatonin 3 mg PO HS 04/07/23 [History] Multivitamins, Thera [Multivitamin (formulary)] 1 tab PO DAILY 04/07/23 [History] Na Phos,M-B/Na Phos,Di-Ba [Fleet Adult] 133 ml RECTAL Q48H PRN 04/07/23 [History] Sertraline [Zoloft] 150 mg PO DAILY 04/07/23 [History] Topiramate [Topamax] 100 mg PO DAILY 04/07/23 [History] bisacodyL [Correctol] 5 mg PO HS PRN 04/07/23 [History] bisacodyL [Dulcolax] 10 mg RECTAL Q72H PRN 04/07/23 [History] carvediloL [Coreg] 6.25 mg PO BID 04/07/23 [History] risperiDONE [RisperDAL] 0.5 mg PO BID 04/07/23 [History] Rivaroxaban [Xarelto] 10 mg PO DAILY #30 tab 04/08/23 [Rx] Sennosides [Senokot] 2 tab PO DAILY PRN #60 tablet 04/08/23 [Rx] traMADol HCl [Ultram] 1 - 2 tab PO Q6H PRN #32 tab 04/08/23 [Rx] LORazepam [Ativan] 1 mg PO BID 3 Days #6 tab 04/11/23 [Rx] Follow up Appointment(s)/Referral(s): Edmar Dillard MD [Primary Care Provider] - 1-2 days Jose Hansen DO [Doctor of Osteopathic Medicine] - 2 Weeks Patient Instructions/Handouts: Fall Prevention for Older Adults (DC), ORIF of Hip Fracture (DC) Activity/Diet/Wound Care/Special Instructions: Weightbearing as tolerated with walker. Leave dressing intact. Dressing may be removed by home care nurse or by patient in 7 days. Then change dressing twice daily until follow up. May shower with initial dressing intact and after removal. If dressing become saturated, please remove. Please take Xarelto daily for 30 days to prevent blood clots. Recommend use of compression stockings daily until follow up to help prevent swelling and blood clots. May remove at night before sleeping. Please follow-up with [facility] in 2 weeks and call with any questions or concerns, . Discharge Disposition: TRANSFER TO SNF/ECF
== END 2023-04-11 16:10 | DRG 521 ==
LOC: EC 14:20 → 4SSUR 18:32
PROVIDERS: ADMIT Hospitalist; ATTEND Hospitalist
PROC: 0SRS0JA Replacement of Left Hip Joint, Femoral Surface with Synthetic Substitute, Uncemented, Open Approach (ICD-10-PCS; principal; 2023-04-08 08:30)
DX: S72.012A Unspecified intracapsular fracture of left femur, initial encounter for closed fracture (principal); K66.1 Hemoperitoneum; D62 Acute posthemorrhagic anemia; F03.93 Unspecified dementia, unspecified severity, with mood disturbance; I10 Essential (primary) hypertension; Z66 Do not resuscitate; W19.XXXA Unspecified fall, initial encounter; Y92.129 Unspecified place in nursing home as the place of occurrence of the external cause; Z86.16 Personal history of COVID-19; Z28.310 Unvaccinated for COVID-19; Z74.01 Bed confinement status; Z79.899 Other long term (current) drug therapy
CPT/HCPCS: 36415; 70450; 71260; 72125; 72192; 73501; 74177; 80048; 80053; 85025; 85610; 85730; 93005; 94760; 96360; 96361; 99285